=== PATIENT | female | born 1985 | race Caucasian/White ===

== ENCOUNTER → 2017-01-05 | Emergency (ER) | payer OTHER ==
[~2017-01-05] VITALS: Ht 162.6 cm; Wt 46.3 kg
[~2017-01-05] MED LIST: AMITRIPTYLINE H25 MG PO; CARAFATE1 GM PO; CHLORPROMAZINE25 MG PO; COMPAZINE25 MG PO; EXCEDRIN MIGRA1 EAC2 PO; IBUPROFEN600 MG PO; IMITREX100 MG PO; NICORETTE4 M1 BUCCAL; OMEPRAZOLE20 M1 PO; OMEPRAZOLE20 MG PO; OXYCODON-ACETA1 EAC2 PO; PHENERGAN25 MG RC; ZANTAC150 MG PO
== END ==
LOC: ED 22:44
DX: O99.611 Diseases of the digestive system complicating pregnancy, first trimester (principal); K29.00 Acute gastritis without bleeding; Z87.891 Personal history of nicotine dependence; Z90.49 Acquired absence of other specified parts of digestive tract; Z79.899 Other long term (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
CPT/HCPCS: 80053; 81001; 82150; 83690; 84703; 85025; 96374; 99283; J2405; J7030

== ENCOUNTER 2017-09-09 08:23 | Emergency (ER) | payer OTHER ==
[~2017-09-09] VITALS: Ht 162.6 cm; Wt 49.9 kg
[2017-09-09] MEDS ORDERED: PHENERGAN25 MG PR (09:42)
[2017-09-10] MEDS ORDERED: AMITRIPTYLINE H25 MG PO (04:48)
[2017-09-10] MEDS ORDERED: ZOFRAN ODT4 MG PO (04:50)
== END 2017-09-09 10:14 | disposition home or self-care (01) ==
LOC: ED 08:23
DX: G43.A1 Cyclical vomiting, in migraine, intractable (principal)
CPT/HCPCS: 80053; 81001; 82150; 83690; 84703; 85025; 96361; 96372; 96374; 99283; J2405; J3486; J7030

== ENCOUNTER 2017-09-10 04:32 | Emergency (ER) | payer OTHER ==
[~2017-09-10] VITALS: Ht 162.6 cm; Wt 49.9 kg
[~2017-09-10 04:32] MED LIST changes: +PHENERGAN25 MG PR
[2017-09-10] MEDS ORDERED: AMITRIPTYLINE H25 MG PO (04:48)
[2017-09-10] MEDS ORDERED: ZOFRAN ODT4 MG PO (04:50)
== END 2017-09-10 07:04 | disposition home or self-care (01) ==
LOC: ED 04:32
DX: K31.89 Other diseases of stomach and duodenum (principal); R11.10 Vomiting, unspecified; Z87.891 Personal history of nicotine dependence; Z79.899 Other long term (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
CPT/HCPCS: 80053; 81001; 84703; 85025; 96374; 96375; 99283; J1200; J2060; J2405; J2765; J7030

== ENCOUNTER → 2018-05-06 | Emergency (ER) | payer OTHER ==
[~2018-05-06] VITALS: Ht 162.6 cm; Wt 58.6 kg
[~2018-05-06] MED LIST changes: +AMITRIPTYLINE H50 MG PO; +BENADRYL25 MG PO; +CHLORPROMAZINE10 MG PO; +DEPO-PROVE150 MG/1 M IM; +NAPROXEN500 MG PO; +ONDANSETRON ODT8 MG PO; +SUMATRIPTAN SUC50 MG PO; +ZOFRAN ODT4 MG PO
== END ==
LOC: ED 10:44
DX: R11.2 Nausea with vomiting, unspecified (principal); Z87.891 Personal history of nicotine dependence; Z79.899 Other long term (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
CPT/HCPCS: 80053; 81001; 82150; 83690; 85025; 96361; 96374; 99284-25; J2550; J7030

== ENCOUNTER 2018-05-07 04:11 | Emergency (ER) | payer OTHER ==
[~2018-05-07] VITALS: Ht 162.6 cm; Wt 56.8 kg
[~2018-05-07 04:11] MED LIST changes: -BENADRYL25 MG PO
--- OUTSIDE RECORDS SUMMARY | 2018-05-07 04:14 | XMS ---
PreManage Notification: KEVIN ARELLANO Security Head Of Partner Development Events No recent Security Events currently on file CRITERIA MET - [facility] - 2 Visits in 30 Days CARE PROVIDERS Britany [facility] 11/22/2015-Current PHONE: Unknown BRITANY Baer LIPSCOMB Primary [facility] 11/22/2015-Current PHONE: Unknown AMPARO FRIAS Primary Care Linh GREENE PHONE: Unknown Brennan has no Care Guidelines for this patient. E.D. VISIT COUNT (12 MO.) 5 DONI Borrero TOTAL 5 NOTE: Visits indicate total known visits. ED/UCC VISIT TRACKING (12 MO.) 05/07/2018 04:11 DONI Medina [place] TYPE: Emergency COMPLAINT: - VOMITING 05/06/2018 10:45 DONI [facility] [place] TYPE: Emergency COMPLAINT: - VOMITING 03/24/2018 16:03 DONI [facility] [place] TYPE: Emergency COMPLAINT: - ABD PAIN 09/10/2017 04:32 DONI Medina [place] TYPE: Emergency COMPLAINT: - VOMITING DIAGNOSES: - Other [place] [facility] (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 - Personal history of nicotine dependence - Other diseases of stomach and duodenum - Vomiting, unspecified 09/09/2017 08:24 DONI [facility] [place] TYPE: Emergency COMPLAINT: - ABD PAIN/VOMITING/DIARRHEA DIAGNOSES: - Unspecified abdominal pain - Cyclical vomiting, intractable INPATIENT VISIT TRACKING (12 MO.) 03/24/2018 16:04 DONI Medina [place] TYPE: Medical Surgical COMPLAINT: - INTRACTABLE VOMITTING DIAGNOSES: - Dehydration - Hypokalemia - Unspecified abdominal pain - Acquired absence of other specified parts of digestive tract - Nausea - Epigastric pain - Other rodent exterminator (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
== END 2018-05-07 06:19 | disposition home or self-care (01) ==
LOC: ED 04:11
DX: R11.2 Nausea with vomiting, unspecified (principal); Z79.899 Other long term (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
CPT/HCPCS: 96374; 96375; 99283-25; J1200; J1630; J7030

== ENCOUNTER 2018-05-08 10:22 | Observation (INO) | payer OTHER ==
[~2018-05-08] VITALS: Ht 162.6 cm; Wt 59.0 kg
--- OUTSIDE RECORDS SUMMARY | 2018-05-08 10:24 | XMS ---
PreManage Notification: KEVIN ARELLANO Security Building Official Events No recent Security Events currently on file CRITERIA MET - [facility] - Has Care Guidelines - [facility] - 2 Visits in 30 Days CARE PROVIDERS AN[facility]A [facility] Internal Medicine 05/08/2018-[facility] [place] PHONE: [phone] Britany Angry Citizen [facility] 11/22/2015-Current PHONE: Unknown FLORAET V LIPSCOMB Primary Care 11/22/2015-Current PHONE: Unknown [facility] PHONE: Unknown Brennan has no Care Guidelines for this patient. Care History Medical/Surgical 05/08/2018 [facility] - Patient is currently established with [facility]. If patient is seen in the ED during business hours. Please contact CHWs at [facility]. Care Recommendation: This patient has had 5 or more Emergency Department visits in the last 12 months.\T\nbsp; Patient requires education on the scope and purpose of the ED as an acute care provider not a Primary Care Provider and should not be utilized for chronic conditions.\T\nbsp; These are guidelines and the provider should exercise clinical judgment when providing care. E.D. VISIT COUNT (12 MO.) 6 [facility]. TOTAL 6 NOTE: Visits indicate total known visits. ED/UCC VISIT TRACKING (12 MO.) 05/08/2018 10:22 DONI Medina [place] TYPE: Emergency COMPLAINT: - VOMITING/STOMACH PAIN 05/07/2018 04:11 DONI Medina [place] TYPE: Emergency COMPLAINT: - VOMITING 05/06/2018 10:45 DONI Medina [place] TYPE: Emergency COMPLAINT: - VOMITING 03/24/2018 16:03 DONI Medina [place] TYPE: Emergency COMPLAINT: - ABD PAIN 09/10/2017 04:32 DONI Lazomile SneedTelma Godfrey [place] TYPE: Emergency COMPLAINT: - VOMITING DIAGNOSES: - Other care home (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 - Personal history of [...] - Nausea - Epigastric pain - Other care home (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 - Cyclical vomiting, not intractable - Other chronic pain - Personal history of nicotine dependence [email or web address]
--- NOTE | 2018-05-08 17:12 | NUR ---
PATIENT SITTING UP IN BED, CALL LIGHT IN REACH, USING INCENTIVE SPIROMETER. NO OTHER NEEDS AT THIS TIME.
--- NOTE | 2018-05-08 18:16 | NUR ---
PT STATES SHE HAD SOME NAUSEA AND 50 CC OF EMESIS. SHE ALSO COMPLAINS OF ABD PAIN AT A 7/10. PT MEDICATED FOR BOTH. PT ENCOURAGED TO CALL IF SYMPTOMS CONTINUE.
--- NOTE | 2018-05-08 19:15 | NUR ---
SHIFT REPORT RECEIVED. PATIENT REPORTS ON GOING PAIN AND NAUSEA, RECENTLY RECEIVED MEDICATIONS ACCORDING TO REPORT. PATIENT REQUEST ICE CHIPS WHICH WERE PROVIDED.
--- NOTE | 2018-05-08 20:40 | NUR ---
SCHEDULE MEDS GIVEN AND PRN ZOFRAN. PATIENT REPORTS MILD NAUSEA, NO EMESIS AT THIS TIME. PAIN 3/10 AFTER TORADOL GIVEN. PAIN IS CENTRALIZED IN EPIGASTRIC AREA AND RADIATES THROUGHOUT UPPER ABD. ABD IS SOFT, MILDLY DISTENDED, AND BOWEL SOUNDS ARE ACTIVE. PATIENT UP TO THE BATHROOM. STEADY ON HER FEET. PATIENT BACK TO BED. IV FLUIDS PER ORDER, SITE WNL. NO OTHER NEEDS AT THIS TIME.
--- NOTE | 2018-05-08 22:46 | NUR ---
Patient requested Scott-destiny. I grabbed it for her and she needs nothing else at this time.
--- NOTE | 2018-05-08 23:05 | NUR ---
PATIENT REPORTS ONGOING NAUSEA WITH OCCATIONAL EMESIS. PRN PHENERGAN PROVIDED. PATIENT RATE EPIGASTRIC PAIN 3/10. IV FLUIDS PER ORDER. SITE WNL.
--- NOTE | 2018-05-08 23:38 | NUR ---
V/S AND I&O DONE AND CHARTED. PATIENT DENIES OF NEED AT THIS TIME.
--- NOTE | 2018-05-09 02:32 | NUR ---
PATIENT PROVIDED TO PRN NAUSEA AND PAIN MEDICATION. NAUSEA IS MILD, NO RECENT EMESIS. EPIGASTRIC PAIN 5/10. ICE PACK PROVIDED PER PATIENT REQUEST. IV FLUIDS PER ORDER, SITE WNL. PATIENT DENIED FURTHER NEEDS.
--- NOTE | 2018-05-09 04:45 | NUR ---
PATIENT APPEARS TO BE SLEEPING SOUNDLY. RR 18. CALL LIGHT IN REACH.
--- NOTE | 2018-05-09 06:36 | NUR ---
PATIENT'S NAUSEA HAS IMPROVED THIS MORNING. NO EMESIS SINCE PRN COMPAZINE GIVEN AT 0230. PATIENT REPORTS "BASELINE NAUSEA" THIS AM. TAKING SIPS OF WATER. IV SL NOW, RECEIVED 2L FLUIDS THIS SHIFT. EPIGASTRIC PAIN HAS IMPROVED WITH PRN TORADOL. NO BM THIS SHIFT, URINE OUTPUT QS.
--- NOTE | 2018-05-09 07:45 | NUR ---
REPORT RECEIVED FROM [employer] OR WORK DISPATCHER RN. PT AWAKE IN BED. REPORTS SOME NAUSEA BUT DENIES VOMITTING. CALL LIGHT IN REACH. SL AT THIS TIME. DENIES NEEDS AT THIS TIME.
--- NOTE | 2018-05-09 09:00 | NUR ---
PT OOB TO SHOWER INDEPENDENTLY. TOLERATED WELL. PHENERGAN FOR NAUSEA ADMINSITERED.
--- NOTE | 2018-05-09 09:22 | NUR ---
PT PLACED NPO. PT REPORTS NO NAUSEA AT THIS TIME. CALL LIGHT IN REACH. PT IN BED.
--- NOTE | 2018-05-09 09:50 | NUR ---
d5lr started at 100ml/hr. pt deneis nausea. 2/10 pain in epigastric area. no intervention needed.
[2018-05-09] MEDS ORDERED: BENADRYL25 MG PO (10:22)
[2018-05-09] MEDS ORDERED: CARAFATE1 GM PO ×2 (10:22→17:49)
[2018-05-09] MEDS ORDERED: OMEPRAZOLE20 MG PO ×2 (10:23→17:49)
--- NOTE | 2018-05-09 10:23 | NUR ---
MED REC COMPLETE
--- NOTE | 2018-05-09 12:22 | NUR ---
PATIENT TOOK A SHOWER THIS MORNING.
--- NOTE | 2018-05-09 14:00 | NUR ---
PT WITH CRACKERS AND SOUP FOR LUNCH. ATE SOME CRACKERS, DIDN'T CARE FOR SOUP BUT DENIES NAUSEA WITH CRACKERS. NO PAIN. CALL LIGHT IN REACH
[2018-05-09] MEDS ORDERED: CHLORPROMAZINE25 MG PO (17:48)
--- NOTE | 2018-05-09 18:10 | NUR ---
ROUNDED WITH DR DONALDSON. DISCHARGE PLAN DISCUSSED. QUESTIONS AND CONCERS ADDRESSED. IV DC'D.
== END 2018-05-09 18:25 | disposition home or self-care (01) ==
LOC: ED 10:22 → MS 10:23
PROVIDERS: ADMIT Internal Medicine
DX: E86.0 Dehydration (principal); R11.2 Nausea with vomiting, unspecified; R10.10 Upper abdominal pain, unspecified; G89.29 Other chronic pain; G43.909 Migraine, unspecified, not intractable, without status migrainosus; E87.6 Hypokalemia; E83.42 Hypomagnesemia; E80.6 Other disorders of bilirubin metabolism; Z86.19 Personal history of other infectious and parasitic diseases; Z79.1 Long term (current) use of non-steroidal anti-inflammatories (NSAID); Z79.899 Other long term (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
CPT/HCPCS: 36415; 76705; 80053; 81001; 82150; 83690; 83735; 84132; 84443; 84703; 85025; 96361; 96365; 96366; 96375; 96376; 99284-25; C9113; G0378; J0780; J1200; J1885; J2405; J2550; J3030; J3475; J3480; J7030; J7120

== ENCOUNTER 2018-05-13 07:40 | Observation (INO) | payer OTHER ==
[~2018-05-13] VITALS: Ht 162.6 cm; Wt 59.0 kg
[~2018-05-13 07:40] MED LIST changes: +BENADRYL25 MG PO
--- OUTSIDE RECORDS SUMMARY | 2018-05-13 07:42 | XMS ---
PreManage Notification: KEVIN ARELLANO Security Statistical Consultant Events No recent Security Events currently on file CRITERIA MET - [facility] - Has Care Guidelines - [facility] - 2 Visits in 30 Days [facility]ARE PROVIDERS [facility] 05[facility]08/2018[facility]: [phone] Britany Baer [facility] 11/22/2015-Current PHONE: Unknown BRITANY V LIPSCOMB Primary Care 11/22/2015-Current PHONE: Unknown JOSI PORTILLO [facility] PHONE: Unknown Brennan has no Care Guidelines for this patient. Care History Medical/Surgical 05/08/2018 [facility] - Patient is currently established with [facility]. If patient is seen in the ED during business hours. Please contact CHWs at [facility]. Care Recommendation: This patient has had 5 [...] providing care. E.D. VISIT COUNT (12 MO.) 7 [facility] TOTAL 7 NOTE: Visits indicate total known visits. ED/UCC VISIT TRACKING (12 MO.) 05/13/2018 07:40 DONI CampbellTelma Godfrey [place] TYPE: Emergency COMPLAINT: - ABD PAIN 05/08/2018 10:22 [facility] HTelma Godfrey [place] TYPE: Emergency COMPLAINT: - VOMITING/STOMACH PAIN 05/07/2018 04:11 [facility] [place] HTelma Godfrey [place] TYPE: Emergency COMPLAINT: - VOMITING DIAGNOSES: - Nausea with vomiting, unspecified - Vomiting, unspecified - Other senior care (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 05/06/2018 10:45 [facility] [place] NarenTelma Godfrey [place] TYPE: Emergency COMPLAINT: - VOMITING DIAGNOSES: - Nausea with vomiting, unspecified - Personal history of nicotine dependence - 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 03/24/2018 16:03 DONI Medina [place] TYPE: Emergency COMPLAINT: - ABD PAIN 09/10/2017 04:32 DONI Medina [place] TYPE: Emergency COMPLAINT: - VOMITING DIAGNOSES: - Other senior care (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 - Personal history of nicotine dependence - Other diseases of stomach and duodenum - Vomiting, unspecified 09/09/2017 08:24 DONI Medina [place] TYPE: Emergency COMPLAINT: - ABD PAIN/VOMITING/DIARRHEA DIAGNOSES: - Unspecified abdominal pain - Cyclical vomiting, intractable INPATIENT VISIT TRACKING (12 MO.) 05/08/2018 10:23 DONI Medina [place] TYPE: Medical Surgical COMPLAINT: - IRRETRACTABLE VOMITING DIAGNOSES: - Personal history of other infectious and parasitic diseases - Hypokalemia - Other disorders of bilirubin metabolism - Nausea with vomiting, unspecified - Dehydration - Upper abdominal pain, unspecified - Other chronic pain - 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 - Migraine, unspecified, not intractable, without status migrainosus - Hypomagnesemia - lobsterman (current) use of non-steroidal anti-inflammatories (NSAID) 03/24/2018 16:04 DONI Medina [place] TYPE: Medical Surgical COMPLAINT: - INTRACTABLE VOMITTING DIAGNOSES: - Dehydration - Hypokalemia - Unspecified abdominal pain - Acquired absence of other specified parts of digestive tract - Nausea - Epigastric pain - 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 - Cyclical vomiting, not intractable - Other chronic pain - Personal history of nicotine dependence [email or web address]
--- NOTE | 2018-05-13 17:12 | NUR ---
PT ARRIVED TO UNIT VIA STRETCHER. AMB INDEPENDENTLY TO RESTROOM, VOIDED WITHOUT DIFFICULTY. AMB TO BED. PT HOLDING EMESIS BAG, OCC GAGS. PT REPORTING 10/10 ABD PAIN "ALL OVER". REPORTS THAT THERE ARE NO RELIEVING FACTORS FOR PAIN, THAT IT WORSENS, WITH MOVEMENT AND PALPATION. MEDICATED WITH 1MG IV MORPHINE. PT VERY DROWSY EVEN PRIOR TO MORPHINE ADMINISTRATION. CLOSES EYES AND APPEARS TO FALL ASLEEP DURING CONVERSATION. ORIENTED TO ALL. WHILE ASSESSING PT SHE CURLED UP ON HER RIGHT SIDE, LAID HER HEAD DOWN AND FELL ASLEEP. CALL LIGHT WITHIN REACH. IV INFUSING WNL.
--- NOTE | 2018-05-13 18:15 | NUR ---
PATIENT IN BED RESTING WITH EYES CLOSED. CALL LIGHT IN REACH. NO FURTHER NEEDS AT THIS TIME.
--- NOTE | 2018-05-13 18:36 | NUR ---
PT RESTING IN BED, EYES CLOSED, RESP EVEN AND UNLABORED.
--- NOTE | 2018-05-13 18:42 | NUR ---
DR. ADRIAN AWARE OF ELEVATED DIASTOLIC BP
--- NOTE | 2018-05-13 19:09 | NUR ---
RECIEVED CHANGE OF SHIFT REPORT FROM GWEN OJEDA. PATIENT LAYING AWAKE IN BED WITH EMESIS BAG IN HAND. PATIENT INDEPENDENTLY AMBULATED TO RESTROOM. WHITE BOARD UPDATED.
--- NOTE | 2018-05-13 21:19 | NUR ---
ASSESSMENT COMPLETE. SCHEDULED MEDICATIONS ADMINISTERED PER MAY ORDER. PRN NAUSEA MEDICATION PROVIDED. PRN PAIN MEDICATION PROVIDED FOR "7/10" SHARP PAIN IN ABDOMEN. HYPOACTIVE BOWEL TONES, PATIENT DENIES HAVING FLATUS. PATIENT DENIES CHEST PAIN, SOB, OR DIFFICULTY BREATHING. EMESIS BAG WITHIN REACH OF PATIENT. IV FLUIDS INFUSING PER MAR ORDER. CALL LIGHT WITHIN REACH. NO MORE NEEDS AT THIS TIME.
--- NOTE | 2018-05-13 23:25 | NUR ---
ROUNDED ON PATIENT RESTING IN BED. RESPIRATORY RATE IS EVEN AND UNLABORED. EMESIS BAG NEARBY. CALL LIGHT WITHIN REACH.
--- NOTE | 2018-05-13 23:50 | NUR ---
ROUNDED ON PATIENT DUE TO REPORT FROM OTHER NURSING STAFF THAT PATIENT REQUESTED PRN NAUSEA MEDICATION. PRN NAUSEA MEDICATION PROVIDED. NEW EMESIS BAG PROVIDED TO PATIENT, OLD EMESIS BAG REMOVED AND GREEN EMESIS PRESENT (150ML). HAT IN TOILET EMPTIED. PATIENT REPORTS PAIN IN ABDOMEN IS "6/10". CALL LIGHT WITHIN REACH. NO MORE NEEDS AT THIS TIME.
--- NOTE | 2018-05-14 02:10 | NUR ---
ASSESSMENT COMPLETE. PATIENT REPORTS HAVING NAUSEA. PATIENT REPORTS "6/10" PAIN IN ABDOMEN AND REPORTS HAVING A HEADACHE, PATIENT DENIES WANTING PRN PAIN MEDICATION. PATINET DENIES CHEST PAIN, SOB, OR DIFFICULTY BREATHING. IV ASSESSED TO BE PATENT. IV FLUIDS INFUSING PER MAR ORDER. TECHNICAL COMMUNICATOR IN ROOM OBTAINING VITALS AND INPUT AND OUTPUT. CALL LIGHT WITHIN REACH. EMESIS BAG IN PATIENT HAND, PATIENT EXHIBITED SPITTING UP DURING ASSESSMENT. NO MORE NEEDS AT THIS TIME.
--- NOTE | 2018-05-14 02:42 | NUR ---
ROUNDED ON PATIENT TO ADMINISTER PRN NAUSEA MEDICATION FOR PATIENT'S REPORTED NAUSEA. PROVIDED EDUCATION TO PATIENT TO NOTIFY NURSING STAFF IF IV SITE BEGINS TO BURN, PATIENT EXPRESSED UNDERSTANDING. CALL LIGHT WITHIN REACH. NO MORE NEEDS AT THIS TIME.
--- NOTE | 2018-05-14 04:31 | NUR ---
ROUNDED ON PATIENT RESTING IN BED WITH EYES CLOSED, RESPIRATORY RATE IS EVEN AND UNLABORED. CALL LIGHT WITHIN REACH.
--- NOTE | 2018-05-14 05:39 | NUR ---
PATIENT SLEPT ON AND OFF THROUGHTOUT THE NIGHT. PRN NAUSEA MEDICATION X3. PRN PAIN MEDICATION X1. EMESIS BAG AT BEDSIDE. PATIENT PRODUCED GREEN COLORED EMESIS THIS SHIFT. IV FLUIDS INFUSING PER MAR ORDER. NPO. INDEPENDENT IN ROOM. URINE SAMPLE SENT TO LAB AT BEGINNING OF SHIFT.
--- NOTE | 2018-05-14 06:28 | NUR ---
ROUNDED ON PATIENT RESTING AWAKE IN BED. PATIENT REPORTS HAVING SLIGHT NAUESA, DENIES WANTING PRN NAUSEA MEDICATION. PATINET DENIES PAIN. PATIENT DENIES CHEST PAIN, SOB, OR DIFFICULTY BREATHING. IV FLUIDS INFUSING PER MAR ORDER. MOUTH SWABS PROVIDED. CALL LIGHT WITHIN REACH. NO MORE NEEDS AT THIS TIME.
--- NOTE | 2018-05-14 07:37 | NUR ---
REPORT RECEIVED FROM PARMINDER OJEDA IN THE PATIENTS ROOM. PATIENT IS AWAKE, ALERT, AND ORIENTED THIS AM. CURRENTLY STILL NPO DUE TO NAUSEA AND VOMITING X1 THROUGH THE NIGHT. SHE STATES THAT THE PHENERGAN WAS THE MOST EFFECTIVE MEDICATION THROUGH THE NIGHT THAT PREVENTED HER NAUSEA. BED IS IN THE LOW POSITION AND RAILS ARE UP. SHE DENIES ANY NEEDS CURRENTLY.
--- NOTE | 2018-05-14 08:10 | NUR ---
MED REC COMPLETE
--- NOTE | 2018-05-14 09:48 | NUR ---
PATIENT IN BED TALKING WITH VISITOR. CALL LIGHT IN REACH. NO FURTHER NEEDS AT THIS TIME.
--- NOTE | 2018-05-14 10:11 | NUR ---
PATIENT STILL DENIES ANY PAIN OR NAUSEA CURRENTLY AND REQUESTED SOME JELLO. DOCTOR KAYLAH DOYLEFIED AND A CLEAR LIQUID DIET ORDERED.
--- NOTE | 2018-05-14 12:26 | NUR ---
patient d/c instructions given, information on thc use and cyclic vomiting given at this time. iv in the right hand dc'd tip intact.
--- NOTE | 2018-05-14 14:41 | NUR ---
CALLED PT REGARDING WALKING HERSELF OUT OF HOSPITAL. PT STATES SHE DID NOT WANT A WHEELCHAIR RIDE AND AFTER DISCHARGE PAPERWORK AND IV REMOVED THOUGHT SHE WAS "GOOD TO GO" APOLOGIZED TO PT FOR MISCOMMUNICATION. PT VERY PLEASANT AND THANKED US FOR A GOOD STAY.
== END 2018-05-14 14:30 | disposition home or self-care (01) ==
LOC: ED 07:40 → MS 07:41
PROVIDERS: ADMIT Internal Medicine
DX: E86.0 Dehydration (principal); R11.2 Nausea with vomiting, unspecified; R19.7 Diarrhea, unspecified; E83.42 Hypomagnesemia; R10.9 Unspecified abdominal pain; G89.29 Other chronic pain; G43.909 Migraine, unspecified, not intractable, without status migrainosus; Z90.49 Acquired absence of other specified parts of digestive tract; Z86.19 Personal history of other infectious and parasitic diseases; Z79.1 Long term (current) use of non-steroidal anti-inflammatories (NSAID); Z79.899 Other long term (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
CPT/HCPCS: 36415; 80048; 80053; 81001; 83690; 83735; 84703; 85025; 96361; 96365; 96366; 96375; 96376; 99284-25; C9113; G0378; J1200; J2270; J2405; J2550; J2765; J3475; J7030; J7120

== ENCOUNTER 2018-08-26 09:04 | Observation (INO) | payer OTHER ==
[~2018-08-26] VITALS: Ht 162.6 cm; Wt 59.0 kg
--- OUTSIDE RECORDS SUMMARY | 2018-08-26 09:06 | XMS ---
PreManage Notification: KEVIN ARELLANO Security Stockroom Inventory Clerk Events No recent Security Events currently on file CRITERIA MET - 6 ED [place] 6 [place] [facility] [place] CIRO DONALDSON Internal Medicine 05/08/2018-[facility] PHONE: [phone] Britany V [facility] 11/22/2015-Current PHONE: Unknown FLORAET V LIPSCOMB Primary Care 11/22/2015-Current PHONE: Unknown JOSI PORTILLO [facility] PHONE: Unknown Brennan has no Care Guidelines for this patient. Care History Medical/Surgical 05/08/2018 [facility] - PER DR ADRIAN PATIENT DOES NOT NEED TO BE ADMITTED FOR CYCLICAL VOMITING. - PLEASE PROVIDE PATIENT WITH GE[facility] IF PATIENT IS SEEN IN THE ED- ADMISSION IS NOT NEEDED. (BASED ON DISCRESSION OF RENDERING PHYSICIAN) - Patient is currently established with [facility]. If patient is seen in the ED during business hours. Please contact CHWs at [facility]. Care Recommendation: This patient has had 5 [...] providing care. E.D. VISIT COUNT (12 MO.) 8 [facility]. TOTAL 8 NOTE: Visits indicate total known visits. ED/UCC VISIT TRACKING (12 MO.) 08/26/2018 09:04 DONI Medina [place] TYPE: Emergency COMPLAINT: - ABD PAIN/VOMITING 05/13/2018 07:40 DONI Medina [place] TYPE: Emergency COMPLAINT: - ABD PAIN 05/08/2018 10:22 DONI Medina [place] TYPE: Emergency COMPLAINT: - VOMITING/STOMACH PAIN 05/07/2018 04:11 DONI Medina [place] TYPE: Emergency COMPLAINT: - VOMITING DIAGNOSES: - Nausea with vomiting, unspecified - Vomiting, unspecified - Other termite treater (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 05/06/2018 10:45 DONI Medina [place] TYPE: Emergency COMPLAINT: - VOMITING DIAGNOSES: - Nausea with vomiting, unspecified - Personal history of nicotine dependence - Other custodial (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 03/24/2018 16:03 DONI Medina [place] TYPE: Emergency COMPLAINT: - ABD PAIN 09/10/2017 04:32 DONI Medina [place] TYPE: Emergency COMPLAINT: - VOMITING DIAGNOSES: - Other custodial (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 - Personal history of nicotine dependence - Other diseases of stomach and duodenum - Vomiting, unspecified 09/09/2017 08:24 DONI Medina [place] TYPE: Emergency COMPLAINT: - ABD PAIN/VOMITING/DIARRHEA DIAGNOSES: - Unspecified abdominal pain - Cyclical vomiting, intractable INPATIENT VISIT TRACKING (12 MO.) 05/13/2018 07:41 DONI Medina [place] TYPE: Observation COMPLAINT: - NVD DIAGNOSES: - Acquired absence of other specified parts of digestive tract - Migraine, unspecified, not intractable, without status migrainosus - Nausea with vomiting, unspecified - Personal history of other infectious and parasitic diseases - Unspecified abdominal pain - Dehydration - Other chronic pain - Other custodial (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 - Diarrhea, unspecified - Upper abdominal pain, unspecified - FDC (current) use of non-steroidal anti-inflammatories (NSAID) - Hypomagnesemia 05/08/2018 10:23 DONI Medina [place] TYPE: Medical Surgical COMPLAINT: - IRRETRACTABLE VOMITING DIAGNOSES: - Personal history of other infectious and parasitic diseases - Hypokalemia - Other disorders of bilirubin metabolism - Nausea with vomiting, unspecified - Dehydration - Upper abdominal pain, unspecified - Other chronic pain - Other termite treater (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 - Migraine, unspecified, not intractable, without status migrainosus - Hypomagnesemia - ferry terminal agent (current) use of non-steroidal anti-inflammatories (NSAID) 03/24/2018 16:04 DONI Medina [place] TYPE: Medical Surgical COMPLAINT: - INTRACTABLE VOMITTING DIAGNOSES: - Dehydration - Hypokalemia - Unspecified abdominal pain - Acquired absence of other specified parts of digestive tract - Nausea - Epigastric pain - Other termite treater (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 - Cyclical vomiting, not intractable - Other chronic pain - Personal history of nicotine dependence [email or web address]
--- NOTE | 2018-08-26 15:51 | NUR ---
PT ARRIVED TO THE FLOOR WITH FLOAT RN. PT VERY DROWSY, WAKES TO TOUCH AND WILL ANSWER QUESTIONS. PT HAS SMALL AMOUNTS OF BRIGHT GREEN EMESIS. SKIN INTACT. ABD TENDER, PT STATES MILDLY DISTENDED FROM USUAL. PT ABLE TO STAND/PIVIOT TRANSFER TO BED. NEED URINE SAMPLE.
--- NOTE | 2018-08-26 18:51 | NUR ---
PATIENT SITTING ON BED. CALL LIGHT IN REACH. NO FURTHER NEEDS AT THIS TIME.
--- NOTE | 2018-08-26 23:39 | NUR ---
PT UTILIZES CALL LIGHT, STATES "MY MONITOR SAYS DISTAL OCCLUSION". RN TO ROOM TO START PUMP. PT DOES NOT OPEN EYES OR WAKE WHILE RN IN ROOM. CALL LIGHT IN REACH.
--- NOTE | 2018-08-27 02:46 | NUR ---
PT UTILIZES CALL LIGHT, REPORTS THAT NAUSEA AND VOMITING IS INCREASING AGAIN. GLASS CUTTING MACHINE OPERATOR TO ROOM. PT WITH 200 ML GREEN EMESIS. PRN REGLAN ADMINISTERED. PT ASSESSMENT COMPLETE. ABD TENDER TO PALPATION. BT'S ACTIVE. NO ABD DISTENSION NOTED. PT DENIES FURTHER NEEDS AT THIS TIME. CALL LIGHT IN REACH.
--- NOTE | 2018-08-27 04:35 | NUR ---
PT RESTING IN BED WITH EYES CLOSED. PT'S HEAD AT FOOT OF BED, PT CURLED INTO POSITION. PT DOES NOT WAKE WHILE LACE PINNER IN DOORWAY. APPEARS TO BE SLEEPING. CALL LIGHT WITHIN REACH.
--- NOTE | 2018-08-27 06:15 | NUR ---
PT UTILIZES CALL LIGHT, REQUESTS ADDITIONAL ANTIEMETIC. PT STATES THAT SHE THREW UP BLOOD. JAVA MOBILE DEVELOPER TO ROOM. EMESIS PLACED PLACED IN SINK BY PT. UPON ASSESSMENT VERY FEW SPECKS OF BLOOD NOTED IN MAINLY GREEN EMESIS ~200ML. PT STATES SHE THINKS IT MAY BE DUE TO HER THROAT BECOMING SORE. PT REQUESTS ICE WATER, PROVIDED. PT STATES SHE THINKS THAT SHE IS GOING TO START HAVING A LOT OF EMESIS DUE TO INCREASE IN ABD PAIN. PT DENIES NEEDS AT THIS TIME. CALL LIGHT IN REACH.
--- NOTE | 2018-08-27 07:15 | NUR ---
BEDSIDE HANDOFF REPORT RECEIVED FROM PULMONARY DISEASE SPECIALIST RN. PT WITH EMESIS, TRIED JELLO, UNABLE TO TOLERATE. PT DENIES OTHER NEEDS AT THIS TIME.
--- NOTE | 2018-08-27 08:03 | NUR ---
PATIENT SITTING UP ON SIDE OF BED EATING BREAKFAST. CALL LIGHT IN REACH. NO FURTHER NEEDS AT THIS TIME.
--- NOTE | 2018-08-27 09:17 | NUR ---
PT RESTING IN BED. PT COMPLAINT OF NAUSEA AND ABD PAIN FROM VOMITING. PT GIVEN PRN REGLAN. PT ON ROOM AIR, LUNG SOUNDS CLEAR. PT NOT TOLERATING CLEAR LIQUID DIET, 300 ML OF EMESIS, SMALL AMOUNT OF BLOODY MUCUS, MD NOTIFIED. BOWEL TONES ACTIVE. CMS INTACT, WITHOUT EDEMA. IV MAG GIVEN. PT INDEPENDENT IN ROOM, UP TO BATHROOM. VOIDING QS. DISCUSSED PLAN OF CARE, PT DENIES OTHER NEEDS AT THIS TIME.
--- NOTE | 2018-08-27 10:16 | NUR ---
PATIENT SITTING ION BED RESTING. FRESH WATER GIVEN. PATIENT REFUSED SHOWER. CALL LIGHT IN REACH. NO FURTHER NEEDS AT THIS TIME./
--- NOTE | 2018-08-27 12:13 | NUR ---
PT STATES NAUSEA IS IMRPOVING, REQUESTING TO HAVE ZOFRAN TO STAY ON TOP OF NAUSEA, 4MG IV ZOFRAN GIVEN. PT DENIES OTHER NEEDS AT THIS TIME.
== END 2018-08-27 14:50 | disposition home or self-care (01) ==
LOC: ED 09:04 → MS 09:05
PROVIDERS: ADMIT Internal Medicine
DX: E86.0 Dehydration (principal); R11.2 Nausea with vomiting, unspecified; E83.42 Hypomagnesemia; R10.9 Unspecified abdominal pain; G89.29 Other chronic pain; G43.909 Migraine, unspecified, not intractable, without status migrainosus; R19.7 Diarrhea, unspecified; Z86.19 Personal history of other infectious and parasitic diseases; Z79.1 Long term (current) use of non-steroidal anti-inflammatories (NSAID); Z79.899 Other long term (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
CPT/HCPCS: 36415; 80048; 80053; 81001; 83690; 83735; 84703; 85025; 96361; 96365; 96366; 96374; 96375; 96376; 99285-25; C9113; G0378; J1200; J1885; J2060; J2405; J2550; J2765; J3475; J3480; J7030; J7120

== ENCOUNTER 2018-12-19 13:06 | Day surgery (SDC) | payer OTHER ==
[~2018-12-19] VITALS: Ht 162.6 cm; Wt 55.8 kg
[2018-12-19] MEDS ORDERED: CARAFATE1 GM PO (13:31)
--- NOTE | 2018-12-19 14:43 | NUR ---
12/19/18 1443 Manda Shaffer 1438 PT ARRIVED TO PACU ON RA AND AWAKE AND TALKING. PT DENIES NAUSEA AND PAIN. PLAN OF CARE DISCUSSED. ALL QUESTIONS ANSWERED.
--- NOTE | 2018-12-20 19:06 | OR ---
[facility] [address], [place] [address] Signed DATE OF OPERATION: 12/19/2018 SURGEON: Camden Ortega MD PREOPERATIVE DIAGNOSES: 1. Upper abdominal pain, bloating, clinical reflux symptoms and diarrhea. 2. at 13 weeks by dates. POSTOPERATIVE DIAGNOSIS: Normal esophagus, stomach, and duodenum. PROCEDURE PERFORMED: Esophagogastroduodenoscopy with biopsy. ANESTHESIA: Intravenous sedation, fentanyl 150 mcg and Versed 4 mg. INDICATION: This 33-year-old white woman is a patient Dr. Donaldson and referred by Dr. Donaldson for upper endoscopy. She is also recently a patient of Dr. Marjorie Marlow. She was seen by me on November 25, 2018, for consideration for upper endoscopy as she has had bloating and postprandial symptoms. She has had cholecystectomy with common duct exploration by me in the past. This included laparoscopic common duct exploration. The patient has had no dysphagia or hematemesis. Does has have abdominal pain and nausea and bloating and diarrhea. She has had no blood per rectum. Empiric treatment with Questran was undertaken with some benefit. She is currently on Carafate and PPI medication. The patient takes a considerable amount of THCVA CBD oil. She is determined to be now at 13 weeks. The relationship of that phenomenon to her symptoms is uncertain, but the symptoms did precede her rather significantly. Mindful of the hazard of sedation in patients, we are proceeding with upper endoscopy today. The risks of bleeding, infection, and other unforeseen complications were reviewed in detail. Reference is made to the [place] [employer] for "endoscopy in volume 76 #01, 2012 is noted as well." FINDINGS: The esophagus, stomach, and duodenum were normal. There was no sign of ulceration, neoplasm, hiatal hernia, or other issue. Biopsies were obtained. CLOtest was negative Electronically Signed By: CAMDEN ORTEGA MD 12/20/18 1906 PATIENT NAME: KEVIN ARELLANO OPERATIVE REPORT DATE OF : [birth year] REPORT #: [id number] PHYSICIAN: CAMDEN ORTEGA MD PCP: CIRO DONALDSON MD REPORT IS CONFIDENTIAL AND NOT TO BE RELEASED WITHOUT AUTHORIZATION [facility] [address], [place] [address] Signed 15 minutes post procedure. DESCRIPTION OF PROCEDURE: The patient was brought to the endoscopy suite and placed in lateral decubitus position, given topical Hurricaine spray hypopharyngeal anesthesia. She was given initially fentanyl 100 mcg and subsequently 50 additional mcg in hopes that alone would be enough for sedation. She was quite alert and oriented as if she had received no medication at all and on that basis, additional synergistic effect of Versed was deemed appropriate and considered safe based on current guidelines. Approximately 4 mg of Versed was administered, which did help with sedation. A bite block was placed and an Olympus video upper endoscope was passed in the hypopharynx. The vocal cords were normal. Scope was advanced down the esophagus, which was normal. Stomach was insufflated with air, there was a bit of bile in the stomach, but not much. Rugal folds appeared normal as did the pylorus. The scope was passed through the pylorus into the duodenum, which was normal. The ampulla was found to be normal. Biopsies were taken of the second and bulbar portions of the duodenum, though clinical appearance was normal. Scope was withdrawn and biopsies taken of the antrum for both BRIANA and pathologic testing. Retroflexed view showed a good flap valve overall. The scope was straightened, withdrawn to the distal esophagus where biopsies were obtained of the distal esophageal mucosa. There was no sign of Trinidad's epithelium or other issue. The scope was withdrawn and biopsies taken of the mid esophagus. Careful withdrawal of scope showed no other findings. In aggregate, the upper endoscopy was normal. She was taken to recovery room in good condition having suffered no complications. CONCLUDING DIAGNOSES: Normal upper endoscopy. PLAN: Continue use of medications, which are beneficial to her thus far including Questran, Prilosec, and Carafate. She will return to the ongoing care of Dr. Donaldson and also to resume OB care with Dr. Marlow. Camden Ortega MD /[facility] [place] /[id number] Electronically Signed By: CAMDEN ORTEGA MD 12/20/18 1906 PATIENT NAME: KEVIN ARELLANO OPERATIVE REPORT DATE OF : [birth year] REPORT #: [id number] PHYSICIAN: CAMDEN ORTEGA MD PCP: CIRO DONALDSON MD REPORT IS CONFIDENTIAL AND NOT TO BE RELEASED WITHOUT AUTHORIZATION [facility] [address] [place] [address] Signed cc: MD Dr. Krunal Worley Copies: MARJORIE MARLOW MD ~ Electronically Signed By: CAMDEN ORTEGA MD 12/20/18 1906 PATIENT NAME: KEVIN ARELLANO OPERATIVE REPORT DATE OF : [birth year] REPORT #: [id number] PHYSICIAN: CAMDEN ORTEGA MD PCP: CIRO DONALDSON MD REPORT IS CONFIDENTIAL AND NOT TO BE RELEASED WITHOUT AUTHORIZATION
== END 2018-12-19 14:57 | disposition home or self-care (01) ==
LOC: OPS 13:06 → DS 13:06 → OPS 14:00 → DS 14:00 → OPS 14:57 → DS 12-23 08:30
PROVIDERS: Surgery
PROC: 0DB38ZX Excision of Lower Esophagus, Via Natural or Artificial Opening Endoscopic, Diagnostic (ICD-10-PCS; 2018-12-19)
PROC: 0DB28ZX Excision of Middle Esophagus, Via Natural or Artificial Opening Endoscopic, Diagnostic (ICD-10-PCS; 2018-12-19)
PROC: 0DB78ZX Excision of Stomach, Pylorus, Via Natural or Artificial Opening Endoscopic, Diagnostic (ICD-10-PCS; 2018-12-19)
PROC: 0DB98ZX Excision of Duodenum, Via Natural or Artificial Opening Endoscopic, Diagnostic (ICD-10-PCS; principal; 2018-12-19 14:00)
DX: O99.611 Diseases of the digestive system complicating pregnancy, first trimester (principal); K31.89 Other diseases of stomach and duodenum; K91.5 Postcholecystectomy syndrome; Z3A.13 13 weeks gestation of pregnancy
CPT/HCPCS: G0500; J2250; J3010; J7120

== ENCOUNTER 2019-03-20 12:18 | Observation (INO) | payer OTHER ==
[~2019-03-20] VITALS: Ht 162.6 cm; Wt 49.4 kg
--- OUTSIDE RECORDS SUMMARY | 2019-03-20 12:20 | XMS ---
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Current [place] PHONE: [phone] [employer] [email or web address] [facility] 11/22/2015-Current PHONE: Unknown [facility] 11/22/2015-Current PHONE: Unknown [facility] Primary Care [facility] PHONE: Unknown [facility] has no Care Guidelines for this patient. Care History Medical/Surgical 05/08/2018 [facility] - PER DR ADRIAN PATIENT DOES NOT NEED TO BE ADMITTED FOR CYCLICAL VOMITING. - PLEASE PROVIDE PATIENT WITH GEODON IF PATIENT IS SEEN IN THE ED- ADMISSION IS NOT NEEDED. (BASED ON DISCRESSION OF RENDERING PHYSICIAN) - Patient is currently established with [facility]. If patient is seen in the ED during business hours. Please contact CHWs at [facility]. Care Recommendation: This patient has had [...] providing care. E.D. VISIT COUNT (12 MO.) 9 [facility]. TOTAL 9 NOTE: Visits indicate total known visits. ED/UCC VISIT TRACKING (12 MO.) 03/20/2019 12:18 [facility] [place] TYPE: Emergency COMPLAINT: - VOMITING 11/05/2018 08:00 [facility] TYPE: Emergency COMPLAINT: - VOMMITING, CRAMPS DIAGNOSES: - Nausea with vomiting, unspecified - Acquired absence of other specified parts of digestive tract - Personal history of nicotine dependence 10/30/2018 07:55 [facility] [place] TYPE: Emergency COMPLAINT: - DOG BITE RT FOREARM DIAGNOSES: - Bitten by dog, initial encounter - Open bite of right forearm, initial encounter 08/26/2018 09:04 [facility] [place] TYPE: Emergency COMPLAINT: - ABD PAIN/VOMITING 05/13/2018 07:40 [facility] [place] TYPE: Emergency COMPLAINT: - ABD PAIN 05/08/2018 10:22 [facility] [place] TYPE: Emergency COMPLAINT: - VOMITING/STOMACH PAIN 05/07/2018 04:11 [facility] TYPE: Emergency COMPLAINT: - VOMITING DIAGNOSES: - Nausea with vomiting, unspecified - Vomiting, unspecified - 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 05/06/2018 10:45 [facility] [place] TYPE: Emergency COMPLAINT: - VOMITING DIAGNOSES: - Nausea with vomiting, unspecified - Personal history of nicotine dependence - 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 03/24/2018 16:03 [facility] [place] TYPE: Emergency COMPLAINT: - ABD PAIN INPATIENT VISIT TRACKING (12 MO.) 08/26/2018 09:05 [facility] TYPE: Observation COMPLAINT: - ABD/VOMITING DIAGNOSES: - Diarrhea, unspecified - Nausea with vomiting, unspecified - Unspecified abdominal pain - Hypomagnesemia - Other chronic pain - 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 - Personal history of other infectious and parasitic diseases - Migraine, unsp, not intractable, without status migrainosus - Dehydration - long term care social worker (current) use of non-steroidal non-inflam (NSAID) 05/13/2018 07:41 [facility] [place] TYPE: Observation COMPLAINT: - NVD DIAGNOSES: - Acquired absence of other specified parts of digestive tract - Migraine, unsp, not intractable, without status migrainosus - Nausea with vomiting, unspecified - Personal history of other infectious and parasitic diseases - Unspecified abdominal pain - Dehydration - Other chronic pain - 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 - Diarrhea, unspecified - Upper abdominal pain, unspecified - long term care social worker (current) use of non-steroidal non-inflam (NSAID) - Hypomagnesemia 05/08/2018 10:23 [facility] TYPE: Observation COMPLAINT: - IRRETRACTABLE VOMITING DIAGNOSES: - Personal history of other infectious and parasitic diseases - Hypokalemia - Other disorders of bilirubin metabolism - Nausea with vomiting, unspecified - Dehydration - Upper abdominal pain, unspecified - Other chronic pain - Other half-way (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 - Migraine, unsp, not intractable, without status migrainosus - Hypomagnesemia - long term care social worker (current) use of non-steroidal non-inflam (NSAID) 03/24/2018 16:04 [facility] TYPE: Observation COMPLAINT: - INTRACTABLE VOMITTING DIAGNOSES: - Dehydration - Hypokalemia - Unspecified abdominal pain - Acquired absence of other specified parts of digestive tract - Nausea - Epigastric pain - 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
[2019-03-20] MEDS ORDERED: PRILOSEC10 M1 PO (12:36)
--- NOTE | 2019-03-20 17:45 | NUR ---
33YR WOMAN ADMITTED FROM ER VIA STRETCHER TO ROOM 112. PT ABLE TO STAND AND TRANSFER ONTO BED WITH MIN ASSIST, C/O ONGOING NAUSEA WITH MOVEMENT, POSITIONED FOR COMFORT WITH WARM BLANKETS, IVF PATENT. DENIES NEED TO VOID. ORIENTED TO ROOM AND CALL LIGHT. "I JUST NEED TO SLEEP." ORDERS NOTED. CALL LIGHT IN EASY REACH.
--- NOTE | 2019-03-20 18:28 | NUR ---
SBA INTO BATHROOM TO VOID 200ML YELLOW URINE. PT DOES STATE NOW SHE HAS HAS SOME DIARRHEA TODAY. CONT. TO HAVE NAUSEA AND OCCASIONAL WRETCHING WITH ACTIVITY. SLEEPY AND JUST WANTS TO SLEEP.
--- NOTE | 2019-03-20 20:01 | NUR ---
PATIENT RESTING QUIETLY, RESPIRATIONS REGULAR AND EVEN, JUST DISCUSSED NIGHT CARE WITH . OB NURSES WILL BE COMING OVER TO DO NST'S. CALL LIGHT IN REACH.
--- NOTE | 2019-03-20 23:27 | NUR ---
8MG IV ZOFRAN AND 25MG IV BENADRYL GIVEN FOR NAUSEA. OB NURSE HERE DOING NST. CALL LIGHT IN REACH.
--- NOTE | 2019-03-20 23:29 | NUR ---
PATIENT RESTING QUIETLY, EYES CLOSED, ON LEFT SIDE, RESPIRATIONS RGULAR AND EVEN, CALL LIGHT IN REACH.
--- NOTE | 2019-03-21 01:30 | NUR ---
PATIENT RESTING QUIETLY ON HER RIGHT SIDE, EYES CLOSED RESPIRATIONS REGULAR AND EVEN. CALL LIGHT IN REACH.
--- NOTE | 2019-03-21 02:30 | NUR ---
PATIENT NAUSEATED AGAIN AND GIVEN 25MG IV PHENERGAN IN 20ML NS. CALL LIGHT IN REACH AND PATIENT RESTING.
--- NOTE | 2019-03-21 04:31 | NUR ---
PATIENT RESTING QUIETLY ON HER LEFT SIDE, RESPIRATIONS REGULAR AND EVEN, EYES CLOSED. CALL LIGHT IN REACH.
--- NOTE | 2019-03-21 06:26 | NUR ---
PATIENT HAS SLEPT UNTIL NOW AND STARTED HAVING NAUSEA AND WAS GIVEN 10MG IV REGLAN. CALL LIGHT IN REACH.
--- NOTE | 2019-03-21 07:10 | NUR ---
BEDSIDE HANDOFF REPORT RECEIVED FROM FILTER TENDER JELLY RN. PT SLEEPING, LEFT UNDISTURBED.
[2019-03-21] MEDS ORDERED: AMITRIPTYLINE H75 MG PO (09:18)
[2019-03-21] MEDS ORDERED: SUMATRIPTAN SUC50 MG PO (09:20)
[2019-03-21] MEDS ORDERED: NAPROSYN500 MG PO (09:21)
[2019-03-21] MEDS ORDERED: CHOLESTYRAMINE L4 GM PO (09:24)
--- NOTE | 2019-03-21 09:25 | NUR ---
PT RESTING IN BED. PT ON ROOM AIR, LUNG SOUNDS CLEAR, DENIES SOB. PT WITH EMESIS, BROWN/RED, SMALL AMOUNTS, PT STATES SHE STARTED VOMITING BLOOD LAST NIGHT. PT DENIES PAIN. CMS INTACT, WITHOUT EDEMA, SCDS APPLIED. D5 1/2 NS+20K INFUSING AT 125ML/HR. PT GIVEN BENADRYL AND ZOFRAN IV FOR NAUSEA. DISCUSSED PLAN OF CARE FOR THE DAY. PT INDEPENDENT IN THE ROOM, AMBULATED TO BATHROOM. DR. BENOIT NOTIFIIED OF HEMATEMESIS AND PT STATUS OVERNIGHT.
[2019-03-21] MEDS ORDERED: ONDANSETRON ODT4 MG PO (09:26)
[2019-03-21] MEDS ORDERED: CHLORPROMAZINE25 MG PO (09:27)
--- NOTE | 2019-03-21 09:45 | NUR ---
PATIENT AWAKE, FEELING NAUSEATED, HAS EMESIS WHILE I WAS IN ROOM. SHE FEELS SAFE TO RETURN HOME TO AND FAMILY AT DISCHARGE. NO KNOWN BARRIERS AT THIS TIME.
--- NOTE | 2019-03-21 10:46 | NUR ---
WENT TO CHECK ON PT-SITTING UP IN BED, WRETCHING WITH EMESIS BAG IN HAND, WILL CHECK BACK AGAIN. GOD BLESS HER
--- NOTE | 2019-03-21 10:50 | NUR ---
PATIENT WITH NAUSEA AND EMESIS WHILE AT 27 WEEKS GESTATION. ON CLEAR LIQUIDS AT THIS TIME. SHE WILL BENEFIT FROM AN ORAL NUTRITION SUPPLEMENT SUCH ENSURE OR OTHER 2-3 PER DAY TO PROVIDE CALORIES, PROTEIN, AND VITAMINS/MINERALS WHEN ABLE TO TOLERATE INTAKE BETTER. WILL CONTINUE TO MONITOR.
--- NOTE | 2019-03-21 12:20 | NUR ---
PT RESTING IN BED. PT STATES HER NAUSEA MAY BE A LITTLE BETTER, FEELING UPPER ABD PAIN "RAW". PT CONTINUES TO HAVE SMALL AMOUNTS OF EMESIS. PT DENIES NEEDS AT THIS TIME.
[2019-03-21] MEDS ORDERED: PHENADOZ25 MG PR (12:47)
--- NOTE | 2019-03-21 12:49 | NUR ---
MED REC COMPLETED
--- NOTE | 2019-03-21 13:59 | HP ---
[facility] [address], [place] [address] Signed ADMISSION DATE: 03/20/2019 CHIEF COMPLAINT: Nausea and vomiting. HISTORY OF PRESENT ILLNESS: Ms. Ferrer is a pleasant 33-year-old G4, P1-0-2-1, with IUP at 27 and 6 days gestation, presents to the emergency department complaining of 2-day history of severe nausea and vomiting. The patient has a history of cyclic vomiting, but has not had significant nausea and vomiting this . She has had multiple hospital admissions in the past here for cyclic vomiting syndrome. She reports that she has had multiple endoscopies in the past with negative findings. She reports that her cyclic vomiting can be triggered by eating beef. She had beef yesterday and reports greater than 40 bouts of emesis in the past two days. No hematemesis. No sick contacts. No fevers, chills, abdominal pain, diarrhea, constipation, or urinary symptoms. No sick contacts. She reports positive movement with no vaginal discharge or bleeding or contractions. She has not yet completed her glucose testing. PAST MEDICAL HISTORY: The patient denies other than cyclic vomiting. PAST SURGICAL HISTORY: Cholecystectomy. FAMILY HISTORY: Hypertension in mother. SURGICAL HISTORY: Dilation and curettage in 2008. SOCIAL HISTORY: Patient denies tobacco, alcohol, marijuana, or other recreational drug use. ALLERGIES: No known drug allergies. MEDICATIONS: Prilosec REVIEW OF SYSTEMS: Complete review of systems was performed and negative except per HPI. Electronically Signed By: JANIE MIRANDA DO 03/21/19 1359 PATIENT NAME: KEVIN FERRER HISTORY AND PHYSICAL DATE OF : [birth year] REPORT #: [id number] PHYSICIAN: JANIE MIRANDA DO PCP: CIRO DONALDSON MD REPORT IS CONFIDENTIAL AND NOT TO BE RELEASED WITHOUT AUTHORIZATION [facility] [address], [place] [address] Signed PHYSICAL EXAMINATION: VITAL SIGNS: Temp 98.0, pulse 87, respiratory rate 14, blood pressure 102/57. GENERAL: The patient is a healthy-appearing white female with a gravid abdomen, lying in hospital bed on the right side. She has emesis bag near her face with occasional retching. HEENT: Normocephalic, atraumatic. NECK: Normal, supple. Midline trachea with no masses. HEART: Regular rate and rhythm. LUNGS: Clear to auscultation bilaterally. CHEST: Normal shape and respiratory effort. No accessory muscle use. ABDOMEN: Gravid with uterine size consistent with dates. No guarding, rebound, or tenderness. No edema. PELVIC: Deferred at this time. LABORATORY DATA: WBC 8.4, hemoglobin 11.6, platelets 225. Sodium 136, potassium 3.6, chloride 102, CO2 23, BUN 9, creatinine 0.51, glucose 90, calcium 8.7, magnesium low at 1.6, AST 14, ALT 10, lipase 44. She is B negative blood type with negative antibody screen. Urine drug screen was not performed; however, urine drug screen at initial OB visit was positive for marijuana. IMAGING: None. ASSESSMENT: 1. Intrauterine at 27 weeks' gestation. 2. Intractable nausea and vomiting. 3. Hypomagnesemia. PLAN: We will admit the patient for symptomatic control of nausea and vomiting. The patient has received initial fluid resuscitation, and we will add thiamine 100 mg IV now. We will also add magnesium sulfate 2 g IV now, vitamin B6 100 mg IV now, and diphenhydramine 25 mg q.6 hours. We will add ranitidine 150 mg p.o. b.i.d. Once current bag of IV fluids is in and the thiamine is replaced, we will switch fluids to dextrose 5% in half-normal saline with 20 mEq of potassium chloride at 125 mL/h. The patient will receive NST q shift. We did add SCDs for DVT prophylaxis. The patient will continue with clear diet and will very slowly consider advancing diet tomorrow. Reviewed triggers with the patient and advised the patient to avoid beef in the near future. She denies marijuana use. However, UDS was positive at her initial OB. Briefly discussed cannabinoid hyperemesis syndrome, although I do not believe this is Electronically Signed By: JANIE MIRANDA DO 03/21/19 1359 PATIENT NAME: KEVIN FERRER HISTORY AND PHYSICAL DATE OF : 89 REPORT #: [id number] PHYSICIAN: JANIE MIRANDA DO PCP: CIRO DONALDSON MD REPORT IS CONFIDENTIAL AND NOT TO BE RELEASED WITHOUT AUTHORIZATION [facility] [address] [place] [address] Signed the case here. We will continue to treat symptomatically and anticipate discharge to home in the next 1-2 days. I did review the case with her primary OB doctor, Marjorie Marlow. Janie Miranda DO [facility] /[id number] Copies: ~ Electronically Signed By: JANIE MIRANDA DO 03/21/19 1359 PATIENT NAME: KEVIN FERRER HISTORY AND PHYSICAL DATE OF : 89 REPORT #: [id number] PHYSICIAN: JANIE MIRANDA DO PCP: CIRO DONALDSON MD REPORT IS CONFIDENTIAL AND NOT TO BE RELEASED WITHOUT AUTHORIZATION
--- NOTE | 2019-03-21 14:08 | NUR ---
PT RESTING IN BED. PT WITHOUT EMESIS FOR SEVERAL HOURS. PT ON ROOM AIR, LUNG SOUNDS CLEAR. BOWEL TONES ACTIVE, TOLERATING ICE CHIPS. PT WITHOUT EDEMA. SECOND BAG OF D5 1/2 NS +20MEQ K NOW INFUSING. PT DENIES OTHER NEEDS AT THIS TIME. [facility] CALLED FOR NST TO BE COMPLETED THIS SHIFT.
--- NOTE | 2019-03-21 14:45 | NUR ---
PT WITH COMPLAINT OF NAUSEA AND WANTS TO STAY ON TOP OF MEDICATION. DISCUSSED WITH DR. BENOIT AND ORDERED TO TRY ZOFRAN AGAIN THEN THORAZINE. PT GIVEN 8MG IV ZOFRAN PER ORDER. PT DENIES OTHER NEEDS AT THIS TIME.
--- NOTE | 2019-03-21 16:11 | NUR ---
PT WITH INCREASED NAUSEA DESPITE IV ZOFRAN. PT GIVEN IM THORAZINE PER ORDER. [facility] NURSE IN ROOM FOR NST. PT DENIES OTHER NEEDS AT THIS TIME.
--- NOTE | 2019-03-21 17:57 | NUR ---
PT RESTING IN BED. PT STATES GI COCKTAIL HAS HELPED WITH ESOPHAGEAL AND STOMACH PAIN, STILL FEELS SLIGHTLY NAUSEATED, WITHOUT EMESIS. BPP COMPLETED, AWAITING RESULTS. PT DENIES OTHER NEEDS AT THIS TIME.
--- NOTE | 2019-03-21 18:23 | NUR ---
PT WITH TEMPERATURE OF 99.4, GIVEN I/S AND INSTRUCTED O USE. WILL CONTINUE TO MONITOR TEMPERATURE.
--- NOTE | 2019-03-21 19:45 | NUR ---
THIS MORNING I ASKED PATIENT IF SHE WOULD LIKE TO TAKE A SHOWER SOMETIME TODAY SHE SAID MAYBE IF SHE FEELS BETTER.
--- NOTE | 2019-03-21 20:15 | NUR ---
COKE PRODUCTION HEATER ROUNDING NOTE. PT RESTING IN BED WITH EYES CLOSED. RESPIRATIONS EVEN AND UNLABORED. PT APPEARS TO BE SLEEPING. DOES NOT WAKE WHILE WELFARE ADVISER IN ROOM. WHITE BOARD UPDATED. CALL LIGHT IN REACH.
--- NOTE | 2019-03-21 20:49 | NUR ---
[facility] NURSE IN ROOM DOING MONITORING. FHR ASSESSED AT THIS TIME. PT DENIES NAUSEA OR ANY DISCOMFORT. WILL CONTINUE TO MONITOR.
--- NOTE | 2019-03-21 21:27 | NUR ---
PT BLOOD PRESSURE 86/42 (55). HEART RATE 105-112 BPM. PT LUNGS SOUND CLEAR, DENIES NAUSEA OR DISCOMFORT. DR BENOIT NOTIFIED OF LOW BP. INSTRUCTED TO ENCOURAGE PT TO AMBULATE. PT UP IN HALLWAYS AT THIS TIME WALKING. NO DIZZINESS NOTED. WILL CONTINUE TO MONITOR.
--- NOTE | 2019-03-21 22:35 | NUR ---
RESPONDED TO PATIENT CALL LIGHT. REQUESTS PRN MEDICATION TO HELP WITH SLEEP. MEDICATION GIVEN (SEE EMAR). NO FURTHER NEEDS AT THIS TIME.
--- NOTE | 2019-03-22 | NUR ---
REPORT GIVEN TO ME BY RUSTY DELATORRE. PATIENT CURRENTLY RESTING QUIETLY ON HER RIGHT SIDE, RESPIRATIONS REGULAR AND EVEN, EYES CLOSED, CALL LIGHT IN REACH.
--- NOTE | 2019-03-22 02:10 | NUR ---
PATIENT RESTING QUIETLY ON HER LEFT SIDE, EYES CLOSED, RESPIRATIONS ARE REGULAR AND EVEN. CALL LIGHT IN REACH.
--- NOTE | 2019-03-22 04:30 | NUR ---
PATIENT RESTING QUIETLY, EYES CLOSED, ON HER LEFT SIDE, HAS NOT CALLED FOR ANYTHING, NEW MEDICATION SEEMS TO BE WORKING WELL. NO VOMITING SENSE MY ARRIVAL. CALL MARY LOU LOPEZ.
--- NOTE | 2019-03-22 05:52 | NUR ---
PATIENT SLEPT WELL MOST OF THE SHIFT, EXCEPT FOR TO GET UP TO USE THE BATHROOM. PATIENT SAYS,"I FEEL SO MUCH BETTER." PATIENT IS GOING TO REST SOME MORE. CALL LIGHT IN REACH.
--- NOTE | 2019-03-22 07:20 | NUR ---
RECIEVED REPORT FROM RUSTY WALL AND POORNIMA RN. PT IS SLEEPING, APPEARS COMFORTABLE. PT HAS BEEN UP ABMULAING IN HALLS OVERNIGHT. AWARE OF NST RESULTS.
--- NOTE | 2019-03-22 07:39 | NUR ---
PT WAKES EASILY DUE TO SCD MACHINE ALARMING. PT STATES SHE HAS NO NAUSEA, "FEELS LIKE HER USUAL SELF". PT IS ALERT AND ORIENTED, COOPERATIVE WITH CARES.
--- NOTE | 2019-03-22 09:06 | NUR ---
PT IS SLOWING DRINKING CLEAR LIQUID TRAY, TOLERATING WELL. PT STATED THAT SHE FEELS LIKE NORMAL. CALLED [facility] TO ASK WHEN DR BENOIT USUALLY ROUNDS. HE USUALLY COMES IN THE MORNING. THEY HAVE NOT SEEN HIM YET IN [facility]. PT HAS NO CONCERNS AT THIS TIME.
--- NOTE | 2019-03-22 12:35 | NUR ---
DISCHARGE TEACHING BY PHARMACY AND NURSING COMPLETE. [facility] RN AND MED/MARKETING PRODUCTION SPECIALISTINSPECTOR AIDE TEACHING COMPLETE. DISCUSSED WHEN TO FOLLOW UP, WHAT TO LOOK FOR, WHEN TO CALL THE DOCTOR, DIET, ACTIVITY. DR BENOIT ALSO DISCUSSED INSTRUCTIONS IN DETAIL.
== END 2019-03-22 12:32 | disposition home or self-care (01) ==
LOC: ED 12:18 → MS 12:19
PROVIDERS: ADMIT Obstetrics & Gynecology
DX: O99.89 Other specified diseases and conditions complicating pregnancy, childbirth and the puerperium (principal); R11.2 Nausea with vomiting, unspecified; O99.282 Endocrine, nutritional and metabolic diseases complicating pregnancy, second trimester; E83.42 Hypomagnesemia; E87.6 Hypokalemia; Z3A.27 27 weeks gestation of pregnancy; Z87.891 Personal history of nicotine dependence
CPT/HCPCS: 36415; 76818; 76819; 80048; 80053; 83690; 83735; 85025; 96361; 96372; 96374; 96375; 96376; 99284-25; C9113; G0378; J0780; J1200; J2405; J2469; J2550; J2765; J3230; J3411; J3415; J3475; J3480; J7030

== ENCOUNTER 2019-06-10 21:34 | Inpatient (IN) | payer OTHER ==
[~2019-06-10 21:34] MED LIST changes: +AMITRIPTYLINE H75 MG PO; +CHOLESTYRAMINE L4 GM PO; +NAPROSYN500 MG PO; +ONDANSETRON ODT4 MG PO; +PHENADOZ25 MG PR; +PRILOSEC10 M1 PO
--- NOTE | 2019-06-11 12:53 | PR ---
[facility] [address] [place], [place] [address] Signed PP Progress Notes Datetime Report Generated by SAURABH: 06/11/2019 12:52 SUBJECTIVE: [id number] Pain: Within normal limits Nausea/Vomiting: Present Vital Signs: [id number] Vital Signs: Reviewed; Within Normal Limits EXAM: [id number] Abdomen/Uterus: Abnormal Exam Comments: Pt curled in position when I entered the room but aroused and answered questions when asked. She does not appear uncomfortable. IMPRESSION/PLAN/PROCEDURES: [id number] Other Impression: N/V Other Plans: Check labs, IV fluids, PO Thorazine Progress Notes: She has a hx of cyclic nausea and vomiting and this started after delivery. She has been admitted in the past with similar symptoms including an episode in 03/20 during . PO Thorazine helped when other antiemetics had not been helpful. Will check labs and try PO Thorazine to see if this will help break her cycle. Signing Physician: Marjorie Marlow MD Copies: ~ *Electronically Signed* 06/11/19 1252 MARJORIE MARLOW MD PATIENT NAME: KEVIN ARELLANO PROGRESS NOTE DATE OF : 89 PHYSICIAN: MARJORIE MARLOW MD RPT #: [id number] REPORT IS CONFIDENTIAL AND NOT TO BE RELEASED WITHOUT AUTHORIZATION
--- NOTE | 2019-06-11 17:35 | PR ---
[facility] [address] [facility] [place] [address] Signed PP Progress Notes Datetime Report Generated by SAURAHB: 06/11/2019 17:35 SUBJECTIVE: [id number] Pain: Within normal limits Nausea/Vomiting: Present Vital Signs: [id number] Vital Signs: Reviewed; Within Normal Limits EXAM: [id number] Abdomen/Uterus: Abnormal Exam Comments: Pt in position with emesis in her bag CMP normal IMPRESSION/PLAN/PROCEDURES: [id number] Other Impression: Cyclic vomiting syndrome Other Plans: Add IV Benadryl Progress Notes: N/V not improved. She has rec'd IV Zofran, IV Phenergan, IV Reglan and PO Thorazine without much relief. Will restart IV fluids and add IV Benadryl to regimen to see if this will be helpful for her vomiting. Signing Physician: Marjorie Marlow MD Copies: ~ *Electronically Signed* 06/11/19 1730 MARJORIE MARLOW MD PATIENT NAME: KEVIN ARELLANO PROGRESS NOTE DATE OF : [birth year] PHYSICIAN: MARJORIE MARLOW MD RPT #: [id number] REPORT IS CONFIDENTIAL AND NOT TO BE RELEASED WITHOUT AUTHORIZATION
--- NOTE | 2019-06-12 08:05 | PR ---
[facility] [address] [facility] [place], [place] [address] Signed PP Progress Notes Datetime Report Generated by CPN: 06/12/2019 08:05 SUBJECTIVE: [id number] Pain: Within normal limits Pain Comments: Feeling much better this am. Nausea/Vomiting: Denies Vital Signs: [id number] Vital Signs: Reviewed; Within Normal Limits EXAM: [id number] Cardiovascular: Not Done Respiratory: Not Done Abdomen/Uterus: Abnormal Lochia: Normal Vulva/Perineum: Not Done Breasts: Not Done CVA Tenderness: Not Done Extremities: Normal Incision: Not Applicable Progress: Abnormal Exam Comments: Fundus firm, NT @ U-1. H/H 8.8/26.8, WBC 12.3, plat 249k K+=3.4, remainder CMP normal IMPRESSION/PLAN/PROCEDURES: [id number] Impression: Normal progression; difficulties Other Impression: Cyclic vomiting much improved Plan: consult Other Plans: Continue thorazine Procedures: Rhogam Progress Notes: Much improved since last pm. Baby has not breast fed well since delivery, however. Signing Physician: Marjorie Marlow MD Copies: ~ *Electronically Signed* 06/12/19 08 MARJORIE MARLOW MD PATIENT NAME: KEVIN ARELLANO PROGRESS NOTE DATE OF : 89 PHYSICIAN: MARJORIE MARLOW MD RPT #: [id number] REPORT IS CONFIDENTIAL AND NOT TO BE RELEASED WITHOUT AUTHORIZATION
--- NOTE | 2019-06-13 09:16 | PR ---
[facility] [address] [facility] [place], [place] [address] Signed PP Progress Notes Datetime Report Generated by CPN: 06/13/2019 09:16 SUBJECTIVE: [id number] Pain: Within normal limits Pain Comments: Feels great Nausea/Vomiting: Denies Vital Signs: [id number] Vital Signs: Reviewed; Within Normal Limits EXAM: [id number] Cardiovascular: Not Done Respiratory: Not Done Abdomen/Uterus: Abnormal Lochia: Normal Vulva/Perineum: Not Done Breasts: Not Done CVA Tenderness: Not Done Extremities: Normal Incision: Not Applicable Progress: Normal Exam Comments: Fundus firm, NT @ U-1. IMPRESSION/PLAN/PROCEDURES: [id number] Impression: Normal progression Other Impression: Cyclic vomiting much improved Plan: Discharge Other Plans: Continue thorazine Procedures: Rhogam Progress Notes: Doing well. She is ready for D/C. Signing Physician: Marjorie Marlow MD Copies: ~ *Electronically Signed* 06/13/19915 MARJORIE MARLOW MD PATIENT NAME: KEVIN ARELLANO EVIE PROGRESS NOTE DATE OF : 89 PHYSICIAN: MARJORIE MARLOW MD RPT #: [id number] REPORT IS CONFIDENTIAL AND NOT TO BE RELEASED WITHOUT AUTHORIZATION
== END 2019-06-13 12:15 | disposition home or self-care (01) | DRG 768 ==
LOC: FBCO 21:34 → FBC 21:53
PROVIDERS: ADMIT Obstetrics & Gynecology
PROC: 10E0XZZ Delivery of Products of Conception, External Approach (ICD-10-PCS; principal; 2019-06-11)
PROC: 0UQM0ZZ Repair Vulva, Open Approach (ICD-10-PCS; 2019-06-11)
PROC: 00HU33Z Insertion of Infusion Device into Spinal Canal, Percutaneous Approach (ICD-10-PCS; 2019-06-11)
PROC: 3E0R3BZ Introduction of Anesthetic Agent into Spinal Canal, Percutaneous Approach (ICD-10-PCS; 2019-06-11)
PROC: 3E0234Z Introduction of Serum, Toxoid and Vaccine into Muscle, Percutaneous Approach (ICD-10-PCS; 2019-06-12)
DX: O76 Abnormality in fetal heart rate and rhythm complicating labor and delivery (principal); Z37.0 Single live birth; O99.354 Diseases of the nervous system complicating childbirth; O99.324 Drug use complicating childbirth; G43.A0 Cyclical vomiting, in migraine, not intractable; O26.893 Other specified pregnancy related conditions, third trimester; O70.1 Second degree perineal laceration during delivery; F12.90 Cannabis use, unspecified, uncomplicated; Z67.21 Type B blood, Rh negative; Z3A.39 39 weeks gestation of pregnancy; Z87.11 Personal history of peptic ulcer disease; Z79.899 Other long term (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; Z87.891 Personal history of nicotine dependence
CPT/HCPCS: 01960; 36415; 80053; 83030; 83735; 85027; 86850; 86870; 86900; 86901; A9270; J1200; J2405; J2550; J2590; J2765; J2790; J2795; J7042; J7121; Q0161

== ENCOUNTER 2019-11-27 09:56 | Emergency (ER) | payer OTHER ==
[~2019-11-27] VITALS: Ht 162.6 cm; Wt 49.5 kg
[2019-11-27] MEDS ORDERED: ONDANSETRON ODT8 MG PO ×2 (11:32→18:59)
[2019-11-27] MEDS ORDERED: PROMETHAZINE HC25 M1 PO (18:59)
[2019-11-27] MEDS ORDERED: OMEPRAZOLE20 MG PO (19:03)
== END 2019-11-27 19:11 | disposition home or self-care (01) ==
LOC: ED 09:56
DX: K52.9 Noninfective gastroenteritis and colitis, unspecified (principal); G43.909 Migraine, unspecified, not intractable, without status migrainosus; F17.200 Nicotine dependence, unspecified, uncomplicated; Z79.899 Other long term (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
CPT/HCPCS: 80053; 81001; 83690; 85025; 96361; 96374; 96375; 96376; 99284-25; C9113; J1200; J1790; J2405; J2550; J7030

== ENCOUNTER 2021-07-20 18:37 | Emergency (ER) | payer OTHER ==
[~2021-07-20] VITALS: Ht 162.6 cm; Wt 58.1 kg
[~2021-07-20 18:37] MED LIST changes: +PROMETHAZINE HC25 M1 PO
--- NOTE | 2021-07-24 17:07 | EKG ---
[facility] [address] [facility] [place], [place] [address] Signed Sinus rhythm with short NV Otherwise normal ECG No previous ECGs available Confirmed by CIRO DONALDSON MD ([id number]) on 07/24/2021 5:07:23 PM Electronically Signed By: CIRO DONALDSON MD 07/24/21 1707 PATIENT NAME: KEVIN ARELLANO Electrocardiogram DATE OF : 89 PHYSICIAN: CIRO DONALDSON MD REPORT #: [id number] REPORT IS CONFIDENTIAL AND NOT TO BE RELEASED WITHOUT AUTHORIZATION
== END 2021-07-20 22:41 | disposition home or self-care (01) ==
LOC: ED 18:37
DX: R11.2 Nausea with vomiting, unspecified (principal); R10.84 Generalized abdominal pain; G43.909 Migraine, unspecified, not intractable, without status migrainosus; F17.200 Nicotine dependence, unspecified, uncomplicated; Z79.899 Other long term (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
CPT/HCPCS: 36415; 80053; 81001; 83690; 83735; 84703; 85025; 93005; 93010; 96374; 96375; 99284-25; J1790; J2405; J2765; J7040; J7121

== ENCOUNTER 2022-04-02 23:48 | Emergency (ER) | payer OTHER ==
[~2022-04-02] VITALS: Ht 162.6 cm; Wt 52.6 kg
[~2022-04-02 23:48] MED LIST changes: +K-TAB ER20 MEQ PO; +PROTONIX40 MG PO
== END 2022-04-03 07:06 | disposition home or self-care (01) ==
LOC: ED 23:48
DX: G43.D0 Abdominal migraine, not intractable (principal); F17.200 Nicotine dependence, unspecified, uncomplicated; Z79.899 Other long term (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
CPT/HCPCS: 36415; 80053; 82248; 83690; 84703; 85025; 96361; 96374; 96375; 99284-25; C9113; J1200; J1790; J1885; J7121

== ENCOUNTER 2022-06-29 19:15 | Emergency (ER) | payer OTHER ==
[~2022-06-29] VITALS: Ht 162.6 cm; Wt 54.5 kg
[~2022-06-29 19:15] MED LIST changes: +REGLAN10 MG PO
[2022-06-30] MEDS ORDERED: PROTONIX40 MG PO (02:59)
== END 2022-06-30 03:10 | disposition home or self-care (01) ==
LOC: ED 19:15
DX: R11.15 Cyclical vomiting syndrome unrelated to migraine (principal); F17.200 Nicotine dependence, unspecified, uncomplicated; Z79.899 Other long term (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
CPT/HCPCS: 36415; 80053; 81001; 83735; 84703; 85025; 96361; 96374; 96375; 99284-25; C9113; J1790; J2405; J2765; J7030; J7040

== ENCOUNTER 2022-08-27 17:39 | Emergency (ER) | payer OTHER ==
[~2022-08-27] VITALS: Ht 162.6 cm; Wt 56.7 kg
[2022-08-27 18:16] VITALS: BP 112/76
== END 2022-08-27 18:16 | disposition home or self-care (01) ==
LOC: ED 17:39
DX: S90.32XA Contusion of left foot, initial encounter (principal); W22.8XXA Striking against or struck by other objects, initial encounter; Y92.828 Other wilderness area as the place of occurrence of the external cause; F17.200 Nicotine dependence, unspecified, uncomplicated; Z79.899 Other long term (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
CPT/HCPCS: 73630; 99283-25

== ENCOUNTER 2024-05-17 22:01 | Emergency (ER) | payer OTHER ==
[~2024-05-17] VITALS: Ht 162.6 cm; Wt 57.6 kg
[2024-05-17] MEDS ORDERED: SODIUM CHLORIDE 0.9% 500 ML IV PRN (22:45)
[2024-05-17] MEDS ORDERED: diphenhydrAMINE HCL 50 MG/ML VIAL IV ONE (22:45)
[2024-05-17] MEDS ORDERED: KETOROLAC TROMETHAMINE 30 MG/ML VIAL IV ONE (22:45)
[2024-05-17] MEDS ORDERED: SUMAtriptan succinate 6 MG/0.5 ML VIAL SUB-Q ONE (22:45)
[2024-05-17] MEDS ORDERED: METOCLOPRAMIDE HCL 10 MG/2 ML SDV IV ONE (22:45)
[2024-05-17] MEDS ORDERED: PROMETHAZINE HCL 25 MG HOME.PACK PO ONE (23:45)
[2024-05-18 00:22] VITALS: BP 113/75
== END 2024-05-18 00:25 | disposition home or self-care (01) ==
LOC: ED 22:01
DX: G43.909 Migraine, unspecified, not intractable, without status migrainosus (principal); F17.200 Nicotine dependence, unspecified, uncomplicated; Z79.899 Other long term (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
CPT/HCPCS: 96374; 96375; 99283-25; J1200; J1885; J2765; J3030; J7040

== ENCOUNTER 2024-08-02 | Emergency (ER) | payer OTHER ==
[~2024-08-02] VITALS: Ht 162.6 cm; Wt 56.1 kg
[~2024-08-02] MED LIST changes: +SUMATRIPTAN SUC25 MG PO
[2024-08-02] MEDS ORDERED: METOCLOPRAMIDE HCL 10 MG/2 ML SDV IV ONE (00:15)
[2024-08-02] MEDS ORDERED: diphenhydrAMINE HCL 50 MG/ML VIAL IV ONE (00:15)
[2024-08-02 00:27] LABS: EOSINOPHILS 0.1 % (0-6); HEMATOCRIT 40.3 % (35.0-50.0); HEMOGLOBIN 14.7 g/dL (12.0-18.0); LYMPHOCYTES 3.3 % (24-44); MCH 30.6 (27-36); MCHC 36.3 g/dl (30-36); MCV 84.2 fl (81-99); MONOCYTES 1.6 % (0-12); PLATELET COUNT 229 K/uL (140-440); RBC 4.79 M/ul (4.3-5.7); RDW 12.6 (10.5-15.0)
[2024-08-02] MEDS ORDERED: SODIUM CHLORIDE 0.9% 1,000 ML IV PRN (00:30)
[2024-08-02 00:41] LABS: ALBUMIN 4.9 g/dL (3.4-5.0); ALBUMIN/GLOBULIN RATIO 1.36 (1.1-2.4); ANION GAP 13.6 (7-21); BILIRUBIN, TOTAL 2.2 mg/dL (0.2-1.0); BUN/CREATININE RATIO 16.3 (6.0-28.6); CALCIUM 9.4 mg/dL (8.5-10.1); CREATININE, SERUM 0.92 mg/dL (0.55-1.02); MAGNESIUM 1.7 mg/dL (1.8-2.4); POTASSIUM 3.6 mmol/L (3.5-5.1); PROTEIN, TOTAL 8.5 g/dL (6.4-8.2)
[2024-08-02] MEDS ORDERED: MAGNESIUM OXIDE 400 MG TABLET PO ONE (01:00)
[2024-08-02] MEDS ORDERED: REGLAN10 MG PO (01:04)
[2024-08-02] MEDS ORDERED: PROMETHAZINE HCL 25 MG SUPP. HOME.PACK PR ONE ×2 (01:15→01:30)
[2024-08-02] MEDS ORDERED: droPERidol 5 MG/2 ML VIAL IV ONE (02:00)
[2024-08-02 02:49] VITALS: BP 127/83
== END 2024-08-02 02:49 | disposition home or self-care (01) ==
LOC: ED
PROVIDERS: Family Medicine
DX: R11.15 Cyclical vomiting syndrome unrelated to migraine (principal); F17.200 Nicotine dependence, unspecified, uncomplicated
CPT/HCPCS: 36415; 80053; 83735; 85025; 96361; 96374; 96375; 99284-25; J1200; J1790; J2765; J7030

== ENCOUNTER 2024-10-19 03:50 | Emergency (ER) | payer OTHER ==
[~2024-10-19] VITALS: Ht 162.6 cm; Wt 56.1 kg
[2024-10-19] MEDS ORDERED: SODIUM CHLORIDE 0.9% 500 ML IV ONE (05:00)
[2024-10-19 05:25] LABS: BASOPHILS 0.1 % (0.1-1.2); EOSINOPHILS 0 % (0.7-5.8); LYMPHOCYTES 3.5 % (19.3-51.7); MCH 29.8 PG (25.6-32.2); MCHC 35.4 g/dL (32.2-35.5); MCV 84.1 fL (79.4-94.8); MONOCYTES 2.2 % (4.7-12.5); NEUTROPHILS 94.0 % (34.0-71.1); RBC 4.40 M/uL (3.93-5.22)
[2024-10-19 05:42] LABS: ALT (SGPT) 22.0 U/L (14-59); AST (SGOT) 17.0 U/L (15-37); GLOMERULAR FILTRATION RATE,EST 117.0 mL/min (>60); PROTEIN, TOTAL 7.8 g/dL (6.4-8.2); UREA NITROGEN 10.0 mg/dL (7-18)
[2024-10-19] MEDS ORDERED: METOCLOPRAMIDE HCL 10 MG/2 ML SDV IV ONE (05:45)
[2024-10-19] MEDS ORDERED: SODIUM CHLORIDE 0.9% 2,000 ML IV SCH (05:45)
[2024-10-19] MEDS ORDERED: ONDANSETRON 4 MG HOME.PACK SL ONE (06:45)
[2024-10-19 06:49] LABS: BLOOD/HGB, URINE TRACE-I (Negative); KETONE, URINE >=80 (Negative); LEUK ESTERASE, URINE NEGATIVE (negative); NITRITE, URINE NEGATIVE (negative)
[2024-10-19] MEDS ORDERED: ONDANSETRON ODT8 MG PO (06:49)
[2024-10-19] MEDS ORDERED: PROMETHAZINE HC25 M1 PO (06:49)
[2024-10-19] MEDS ORDERED: PROMETHEGAN25 MG PR (06:49)
[2024-10-19 06:54] LABS: BACTERIA, URINE NONE SEEN /hpf (negative); CASTS, URINE NONE SEEN \\lpf; CRYSTALS, URINE NONE SEEN (0-1+); EPITHELIAL CELLS, URINE SQUAMOUS 3+ /lpf (0-1+); REFLEX CULTURE, URINE No (No)
[2024-10-19] MEDS ORDERED: PROMETHAZINE HCL 25 MG SUPP. HOME.PACK PR ONE ×2 (07:00→07:30)
[2024-10-19] MEDS ORDERED: PROMETHAZINE HCL 25 MG HOME.PACK PO ONE ×2 (07:00→07:30)
[2024-10-19 07:40] VITALS: BP 118/85
== END 2024-10-19 07:40 | disposition home or self-care (01) ==
LOC: ED 03:50
PROVIDERS: Emergency Medicine
DX: K52.9 Noninfective gastroenteritis and colitis, unspecified (principal); G43.909 Migraine, unspecified, not intractable, without status migrainosus; F17.200 Nicotine dependence, unspecified, uncomplicated
CPT/HCPCS: 36415; 80053; 81001; 83690; 83735; 84703; 85025; 96361; 96374; 96375; 99284-25; A9270; J1200; J2405; J2765; J7030; J7040